=== PATIENT | female | born 1995 | race Caucasian/White ===

== ENCOUNTER 2019-06-30 13:54 | Outpatient (CLI) | payer MEDICAID ==
[~2019-06-30] VITALS: Ht 152.4 cm; Wt 86.3 kg
[~2019-06-30 13:54] MED LIST: CEPH-443 PO; FER325 PO; IBUP-1561 PO; PNV11TAB PO
[2019-06-30 16:29] VITALS: Ht 152.4 cm; Wt 86.3 kg
== END 2019-06-30 19:10 | disposition home or self-care (01) ==
LOC: OBT 13:54 → L-D 13:55 → OBT 19:10
PROVIDERS: ATTEND Obstetrics & Gynecology
DX: O26.893 Other specified pregnancy related conditions, third trimester (principal); L29.9 Pruritus, unspecified; Z3A.37 37 weeks gestation of pregnancy
CPT/HCPCS: 76818; 80053; 83789; Z7500; G0463

== ENCOUNTER 2019-07-06 21:42 | Emergency (ER) | payer MEDICAID ==
[~2019-07-06] VITALS: Ht 152.4 cm; Wt 85.3 kg
[2019-07-06 21:47] VITALS: BP 121/66; PULSE 78; RESP 16; Ht 152.4 cm; Wt 85.3 kg
== END 2019-07-07 01:43 | disposition left against medical advice (07) ==
LOC: FTE 21:42
DX: O26.893 Other specified pregnancy related conditions, third trimester (principal); R21 Rash and other nonspecific skin eruption; Z3A.38 38 weeks gestation of pregnancy
CPT/HCPCS: 99282